=== PATIENT | female | born 1965 | race Caucasian/White ===

== ENCOUNTER → 2016-04-26 | Outpatient (CLI) | payer OTHER ==
--- NOTE | 2016-04-26 08:55 | MA ---
Screening Bilateral Digital Mammogram History: Screening. Breast parenchymal density: B., Scattered densities Technique: Four digital views of each breast are obtained including CC and oblique lateral Teresa (im plant displaced) and non-Teresa (implant not displaced) views. CAD is utilized using the iCAD product . Comparison: October 2012 and July 2009. Findings: Bilateral breast implants are in place. No suspicious areas are identified. Impression: Negative mammogram. Routine screening is recommended in one year. BI-RADS : 1, Negative. [facility] will send a result letter to the patient. Negative mammography should not preclude additional workup of a clinically suspicious finding. The patient's information is entered into a reminder system with a target due date for her next mammo gram.
== END ==
LOC: BMCIMAGING 08:06
DX: Z12.31 Encounter for screening mammogram for malignant neoplasm of breast (principal)
CPT/HCPCS: G0202

== ENCOUNTER → 2017-04-07 | Outpatient (CLI) | payer OTHER ==
--- NOTE | 2017-04-07 16:03 | CPEKG ---
Heart Rate: 46 RR Interval: 1304 P-R Interval: 152 QRSD Interval: 84 QT Interval: 480 QTC Interval: 420 P Britt: 52 QRS Britt: 81 T Wave Britt: 61 EKG Severity - OTHERWISE NORMAL ECG - EKG Impression: SINUS BRADYCARDIA Electronically Signed By: Ezekiel Alaniz 08-Apr-2017 14:39:39
== END ==
LOC: FCP 15:31
PROVIDERS: ATTEND Internal Medicine
DX: Z01.810 Encounter for preprocedural cardiovascular examination (principal); R00.1 Bradycardia, unspecified

== ENCOUNTER → 2017-04-28 | Outpatient (CLI) | payer OTHER | LOC: BMCIMAGING 09:33 | PROVIDERS: ATTEND Internal Medicine | DX: Z12.31 Encounter for screening mammogram for malignant neoplasm of breast (principal) ==

== ENCOUNTER → 2018-04-03 | Outpatient (CLI) | payer OTHER | LOC: BMCIMAGING 14:16 | PROVIDERS: ATTEND Internal Medicine | DX: Z12.31 Encounter for screening mammogram for malignant neoplasm of breast (principal) ==